=== PATIENT | female | born 1960 | race African-American/Black ===

== ENCOUNTER 2017-09-16 18:07 | Emergency (ER) | payer MEDICARE, OTHER ==
[~2017-09-16] VITALS: Ht 157.5 cm; Wt 58.1 kg
[2017-09-16 18:11] VITALS: BP 132/87
== END 2017-09-17 | disposition left against medical advice (07) ==
LOC: ER 18:11
DX: N89.8 Other specified noninflammatory disorders of vagina (principal); Z53.21 Procedure and treatment not carried out due to patient leaving prior to being seen by health care provider

== ENCOUNTER 2017-12-13 13:01 | Emergency (ER) | payer MEDICARE, OTHER ==
[~2017-12-13] VITALS: Ht 165.1 cm; Wt 52.2 kg
[2017-12-13 13:05] VITALS: BP 139/84
== END 2017-12-13 15:19 | disposition left against medical advice (07) ==
LOC: EDBD 13:01 → ER 13:01
DX: E11.65 Type 2 diabetes mellitus with hyperglycemia (principal); Z53.29 Procedure and treatment not carried out because of patient's decision for other reasons